=== PATIENT | female | born 1935 | race Hispanic/Latino ===

== ENCOUNTER → 2019-05-10 | Outpatient (CLI) | payer OTHER, MEDICARE | END | disposition home or self-care (01) | LOC: OIH 11:36 | PROVIDERS: ATTEND Family Medicine | DX: M17.11 Unilateral primary osteoarthritis, right knee (principal) | CPT/HCPCS: 73562 ==

== ENCOUNTER 2021-10-27 17:36 | Inpatient (IN) | payer OTHER, MEDICARE ==
[~2021-10-27] VITALS: Ht 149.9 cm; Wt 47.4 kg
[2021-10-27 18:05] LABS: BASOPHILS % (AUTO) 0.5 % (0.0-5.0); EOSINOPHILS % (AUTO) 0.9 % (0.0-8.0); HEMATOCRIT 38.3 % (36-48); LYMPHOCYTES % (AUTO) 12.6 % (21.0-51.0); MEAN CORPUSCULAR HEMOGLOBIN 31.7 pg (27.0-33.0); MEAN CORPUSCULAR HGB CONC 37.9 g/dL (32.0-36.0); MEAN CORPUSCULAR VOLUME 83.6 fL (79-99); MONOCYTES % (AUTO) 9.9 % (3.0-13.0); NEUTROPHILS % (AUTO) 72.1 % (40.0-77.0); PLATELET COUNT (AUTO) 339 K/uL (130-400); RED BLOOD CELL COUNT(AUTO) 4.58 MIL/uL (4.00-5.50); RED CELL DISTRIBUTION WIDTH 11.3 % (11.0-15.5); WHITE BLOOD COUNT (AUTO) 13.1 K/uL (4.8-10.8)
[2021-10-27 18:22] LABS: ALBUMIN 3.7 g/dL (3.5-5.0); CREATININE 1.1 mg/dL (0.5-1.5); TOTAL PROTEIN, SERUM 8.1 g/dL (6.0-8.3)
[2021-10-27 18:33] LABS: POTASSIUM 2.4 mmol/L (3.5-5.1)
[2021-10-27] MEDS ORDERED: POTASSIUM BICARB/CIT AC 25 MEQ TABLET.EFF ONE (18:57)
[2021-10-27] MEDS ORDERED: 0.9%NACL 1000ML 1,000 ML IV SCH (19:00)
[2021-10-27] MEDS ORDERED: POTASSIUM BICARB/CIT AC 25 MEQ TABLET.EFF PO ONE (19:00)
[2021-10-27] MEDS ORDERED: GUAIFENESIN-CODEINE 5 ML SYRUP PO ONE (19:00)
[2021-10-27 19:57] LABS: CRP QUANTITATIVE 5.6 mg/L (0.00-9.0); MAGNESIUM 2.2 mg/dL (1.80-2.40)
[2021-10-27] MEDS ORDERED: GUAIFENESIN-DM 200/20 MG 10 ML ONE (20:44)
[2021-10-27] MEDS ORDERED: LACTULOSE 20 GM/30 ML UDCUP PO PRN (21:30)
[2021-10-27] MEDS ORDERED: POTASSIUM CHLORIDE 20MEQ/100ML 100 ML IV PRN (21:30)
[2021-10-27] MEDS ORDERED: ONDANSETRON 4MG INJ IVP PRN (21:30)
[2021-10-27] MEDS ORDERED: TEMAZEPAM 15 MG CAPSULE PO PRN (21:30)
[2021-10-27] MEDS ORDERED: HYDRALAZINE 20MG/ML VIAL IV PRN (21:30)
[2021-10-27] MEDS ORDERED: CLONIDINE HCL 0.1 MG TABLET PO PRN (21:30)
[2021-10-27] MEDS ORDERED: DOCUSATE SODIUM 100 MG CAP PO PRN (21:30)
[2021-10-27] MEDS ORDERED: ACETAMINOPHEN 650 MG SUPPOSITORY RC PRN (21:30)
[2021-10-27] MEDS ORDERED: DEXTROSE 50%-WATER 50 ML DISP.SYRIN IV PRN (21:30)
[2021-10-27] MEDS ORDERED: LABETALOL 20MG SYG IV PRN (21:30)
[2021-10-27] MEDS ORDERED: GLUCAGON 1MG KIT 1 MG ML IM PRN (21:30)
[2021-10-27] MEDS: LACTATED RINGERS 1000ML 1,000 ML IV SCH (21:30)
[2021-10-27] MEDS ORDERED: MAGNESIUM 2GM PREMIX 50ML 50 ML IV PRN (21:30)
[2021-10-27] MEDS: SODIUM CHLORIDE 1,000 MG TAB PO SCH (22:48)
[2021-10-27] MEDS: LEVOFLOXACIN 250 MG/D5W 50ML 50 ML IVPB SCH (23:07)
[2021-10-27] MEDS ORDERED: LEVOFLOXACIN 500 MG/D5W 100 ML 100 ML ONE (23:07)
[2021-10-28] VITALS (25 sets, daily range): BP systolic 97–149; BP diastolic 44–71
[2021-10-28] LABS: POTASSIUM 3.3 mmol/L (3.5-5.1)
[2021-10-28 00:33] LABS: CREATININE 1.1 mg/dL (0.5-1.5)
[2021-10-28 00:54] LABS: APPEARANCE,URINE CLEAR (CLEAR); BILIRUBIN,URINE NEGATIVE (NEGATIVE); COLOR,URINE YELLOW (YELLOW); GLUCOSE, URINE (UA) NEGATIVE (NEGATIVE); KETONES,URINE NEGATIVE (NEGATIVE); LEUKOCYTE ESTERASE ,URINE NEGATIVE (NEGATIVE); NITRATE,URINE NEGATIVE (NEGATIVE); OCCULT BLOOD,URINE NEGATIVE (NEGATIVE); PROTEIN,URINE NEGATIVE (NEGATIVE); UROBILINOGEN,URINE 0.2 mg/dL (0.2-1.0)
[2021-10-28] MEDS ORDERED: ASCO500T20 PO (01:05)
[2021-10-28] MEDS ORDERED: VITA-164 PO (01:05)
[2021-10-28] MEDS ORDERED: CHOL200074 PO (01:05)
[2021-10-28] MEDS ORDERED: FOLI1TAB85 PO (01:05)
[2021-10-28] MEDS ORDERED: CHLO25TA3 PO (01:05)
[2021-10-28] MEDS ORDERED: METO-391 PO (01:05)
[2021-10-28] MEDS ORDERED: OMEP20CA12 PO (01:05)
[2021-10-28 04:34] LABS: BASOPHILS % (AUTO) 0.4 % (0.0-5.0); EOSINOPHILS % (AUTO) 0.4 % (0.0-8.0); HEMATOCRIT 35.5 % (36-48); LYMPHOCYTES % (AUTO) 15.4 % (21.0-51.0); MEAN CORPUSCULAR HEMOGLOBIN 31.3 pg (27.0-33.0); MEAN CORPUSCULAR HGB CONC 37.2 g/dL (32.0-36.0); MEAN CORPUSCULAR VOLUME 84.1 fL (79-99); MONOCYTES % (AUTO) 12.9 % (3.0-13.0); NEUTROPHILS % (AUTO) 67.3 % (40.0-77.0); PLATELET COUNT (AUTO) 273 K/uL (130-400); RED BLOOD CELL COUNT(AUTO) 4.22 MIL/uL (4.00-5.50); RED CELL DISTRIBUTION WIDTH 11.1 % (11.0-15.5); WHITE BLOOD COUNT (AUTO) 11.8 K/uL (4.8-10.8)
[2021-10-28 04:58] LABS: MAGNESIUM 1.9 mg/dL (1.80-2.40); PHOSPHORUS 2.7 mg/dL (2.5-4.9); POTASSIUM 3.2 mmol/L (3.5-5.1)
[2021-10-28] MEDS: INSULIN HUMULIN R 100 UNIT/ML 3ML SQ SCH ×4 (07:30→20:34)
[2021-10-28] MEDS ORDERED: NIRM1TAB PO (07:35)
[2021-10-28] MEDS ORDERED: AZITHROMYCIN 500MG+NS 250ML IV SCH (09:00)
[2021-10-28] MEDS: METOPROLOL SUCCINATE 50 MG TAB.SR.24H PO SCH (09:18)
[2021-10-28] MEDS: ASCORBIC ACID 500 MG TAB PO SCH (09:18)
[2021-10-28] MEDS: Vitamin B Complex/Vit C/Folic Acid PO SCH (09:18)
[2021-10-28] MEDS: ENOXAPARIN SODIUM 40 MG/0.4 ML SYRINGE SQ SCH (09:18)
[2021-10-28] MEDS: SODIUM CHLORIDE 1,000 MG TAB PO SCH ×3 (09:18→20:02)
[2021-10-28] MEDS: LACTATED RINGERS 1000ML 1,000 ML IV SCH ×2 (10:19→19:59)
[2021-10-28] MEDS: POTASSIUM CHLORIDE 10% ELIXIR 20 MEQ/15 ML UDCUP PO PRN ×3 (10:20→22:49)
[2021-10-28 14:35] LABS: CREATININE 0.9 mg/dL (0.5-1.5); POTASSIUM 3.7 mmol/L (3.5-5.1)
[2021-10-28 20:10] LABS: POTASSIUM 3.2 mmol/L (3.5-5.1)
[2021-10-28] MEDS ORDERED: 0.9%NACL 1000ML 1,000 ML IV SCH (20:30)
[2021-10-28] MEDS ORDERED: SODIUM CHLORIDE 1,000 MG TAB PO SCH (21:00)
[2021-10-28] MEDS: LEVOFLOXACIN 250 MG/D5W 50ML 50 ML IVPB SCH (21:31)
[2021-10-29] VITALS (16 sets, daily range): BP systolic 94–138; BP diastolic 42–75
[2021-10-29] MEDS: POTASSIUM CHLORIDE 10% ELIXIR 20 MEQ/15 ML UDCUP PO PRN (00:54)
[2021-10-29 03:53] LABS: HEMATOCRIT 33.1 % (36-48); MEAN CORPUSCULAR HEMOGLOBIN 31.9 pg (27.0-33.0); MEAN CORPUSCULAR HGB CONC 36.6 g/dL (32.0-36.0); MEAN CORPUSCULAR VOLUME 87.3 fL (79-99); PLATELET COUNT (AUTO) 283 K/uL (130-400); RED BLOOD CELL COUNT(AUTO) 3.79 MIL/uL (4.00-5.50); RED CELL DISTRIBUTION WIDTH 11.9 % (11.0-15.5); WHITE BLOOD COUNT (AUTO) 13.9 K/uL (4.8-10.8)
[2021-10-29 04:26] LABS: ALBUMIN 2.8 g/dL (3.5-5.0); CREATININE 0.9 mg/dL (0.5-1.5); MAGNESIUM 2.3 mg/dL (1.80-2.40); PHOSPHORUS 2.1 mg/dL (2.5-4.9); POTASSIUM 4.6 mmol/L (3.5-5.1); THYROID STIMULATING HORMONE 0.93 uIU/mL (0.36-3.74); TOTAL PROTEIN, SERUM 6.4 g/dL (6.0-8.3); URIC ACID 3.9 mg/dL (2.6-7.2)
[2021-10-29 04:36] LABS: BAND NEUTROPHILS % (MANUAL) 2 % (0-2); LYMPHOCYTES % (MANUAL) 8 % (22-44); MAN.DIFF COMMENT-IMPRESSION MANUAL DIFFERENTIAL; MONOCYTES % (MANUAL) 14 % (2-9); SEGMENTED NEUTROPHILS % 76 % (40-70)
[2021-10-29 04:37] LABS: PLATELET MORPHOLOGY COMMENT ADEQUATE
[2021-10-29] MEDS: ACETAMINOPHEN 325 MG TAB PO PRN ×3 (05:07→23:19)
[2021-10-29] MEDS: INSULIN HUMULIN R 100 UNIT/ML 3ML SQ SCH ×4 (07:30→19:58)
[2021-10-29] MEDS: ASCORBIC ACID 500 MG TAB PO SCH (08:25)
[2021-10-29] MEDS: ENOXAPARIN SODIUM 40 MG/0.4 ML SYRINGE SQ SCH (08:25)
[2021-10-29] MEDS: METOPROLOL SUCCINATE 50 MG TAB.SR.24H PO SCH (08:25)
[2021-10-29] MEDS: Vitamin B Complex/Vit C/Folic Acid PO SCH (08:25)
[2021-10-29 09:15] LABS: APPEARANCE,URINE Clear (CLEAR); BILIRUBIN,URINE Negative (NEGATIVE); CHLORIDE,URINE RANDOM 87 mmol/L (110-250); COLOR,URINE Yellow (YELLOW); CREATININE,URINE RANDOM 40 mg/dL (30-135); GLUCOSE, URINE (UA) Negative (NEGATIVE); KETONES,URINE Negative (NEGATIVE); LEUKOCYTE ESTERASE ,URINE Large (NEGATIVE); NITRATE,URINE Negative (NEGATIVE); OCCULT BLOOD,URINE Negative (NEGATIVE); POTASSIUM,URINE RANDOM 37 mmol/L (25-125); PROTEIN,URINE Negative (NEGATIVE); SODIUM,URINE RANDOM 78 mmol/l (40-220)
[2021-10-29] MEDS ORDERED: SODIUM CHLORIDE 1,000 MG TAB PO SCH (10:00)
[2021-10-29 10:50] LABS: BACTERIA,URINE Rare /HPF (None Seen); RBC,URINE 0-1 /HPF (0-1); SQUAMOUS EPITHELIAL CELL,UR Rare /HPF (0-2)
[2021-10-29] MEDS: SODIUM CHLORIDE 1,000 MG TAB PO SCH ×2 (14:30→20:16)
[2021-10-29] MEDS: LEVOFLOXACIN 250 MG/D5W 50ML 50 ML IVPB SCH (20:16)
[2021-10-30 03:23] VITALS: BP 140/72
[2021-10-30 04:41] LABS: HEMATOCRIT 31.9 % (36-48); MEAN CORPUSCULAR HEMOGLOBIN 31.8 pg (27.0-33.0); MEAN CORPUSCULAR HGB CONC 35.7 g/dL (32.0-36.0); MEAN CORPUSCULAR VOLUME 88.9 fL (79-99); PLATELET COUNT (AUTO) 251 K/uL (130-400); RED BLOOD CELL COUNT(AUTO) 3.59 MIL/uL (4.00-5.50); RED CELL DISTRIBUTION WIDTH 11.9 % (11.0-15.5); WHITE BLOOD COUNT (AUTO) 13.9 K/uL (4.8-10.8)
[2021-10-30 05:00] LABS: BASOPHILS % (MANUAL) 1 % (0-2); EOSINOPHILS % (MANUAL) 1 % (1-6); LYMPHOCYTES % (MANUAL) 16 % (22-44); MAN.DIFF COMMENT-IMPRESSION MANUAL DIFFERENTIAL; MONOCYTES % (MANUAL) 7 % (2-9); PLATELET MORPHOLOGY COMMENT ADEQUATE; SEGMENTED NEUTROPHILS % 75 % (40-70)
[2021-10-30 05:05] LABS: CREATININE 0.7 mg/dL (0.5-1.5); MAGNESIUM 2.1 mg/dL (1.80-2.40); PHOSPHORUS 3.5 mg/dL (2.5-4.9); POTASSIUM 3.8 mmol/L (3.5-5.1)
[2021-10-30] MEDS: KCL 20 MEQ ERTAB PO PRN ×2 (06:04→20:44)
[2021-10-30] MEDS: INSULIN HUMULIN R 100 UNIT/ML 3ML SQ SCH ×2 (06:04→11:30)
[2021-10-30 08:00] VITALS: BP 159/67
[2021-10-30] MEDS: SODIUM CHLORIDE 1,000 MG TAB PO SCH ×3 (08:56→20:42)
[2021-10-30] MEDS: Vitamin B Complex/Vit C/Folic Acid PO SCH (08:56)
[2021-10-30] MEDS: ASCORBIC ACID 500 MG TAB PO SCH (08:56)
[2021-10-30] MEDS: METOPROLOL SUCCINATE 50 MG TAB.SR.24H PO SCH (08:56)
[2021-10-30] MEDS: ENOXAPARIN SODIUM 40 MG/0.4 ML SYRINGE SQ SCH (08:58)
[2021-10-30 12:00] VITALS: BP 161/69
[2021-10-30] MEDS ORDERED: LACTULOSE 20 GM/30 ML UDCUP PO PRN (14:30)
[2021-10-30 16:00] VITALS: BP 165/75
[2021-10-30 19:55] VITALS: BP 156/69
[2021-10-30] MEDS: ACETAMINOPHEN 325 MG TAB PO PRN (20:44)
[2021-10-30] MEDS: LEVOFLOXACIN 250 MG/D5W 50ML 50 ML IVPB SCH (20:44)
[2021-10-30] MEDS ORDERED: DiphenhydrAMINE HCL 50 MG/ML VIAL ONE (22:38)
[2021-10-30] MEDS ORDERED: DiphenhydrAMINE HCL 50 MG/ML VIAL IV PRN (23:30)
[2021-10-30 23:59] VITALS: BP 161/76
[2021-10-31 04:31] VITALS: BP 144/76
[2021-10-31 05:10] LABS: HEMATOCRIT 32.8 % (36-48); MEAN CORPUSCULAR HEMOGLOBIN 31.9 pg (27.0-33.0); MEAN CORPUSCULAR HGB CONC 35.1 g/dL (32.0-36.0); MEAN CORPUSCULAR VOLUME 91.1 fL (79-99); RED BLOOD CELL COUNT(AUTO) 3.6 MIL/uL (4.00-5.50); RED CELL DISTRIBUTION WIDTH 12.2 % (11.0-15.5); WHITE BLOOD COUNT (AUTO) 13.1 K/uL (4.8-10.8)
[2021-10-31 05:28] LABS: CREATININE 0.8 mg/dL (0.5-1.5); PHOSPHORUS 3.4 mg/dL (2.5-4.9); POTASSIUM 4.2 mmol/L (3.5-5.1)
[2021-10-31 08:00] VITALS: BP 145/75
[2021-10-31] MEDS: ASCORBIC ACID 500 MG TAB PO SCH (08:16)
[2021-10-31] MEDS: SODIUM CHLORIDE 1,000 MG TAB PO SCH ×3 (08:16→21:00)
[2021-10-31] MEDS: Vitamin B Complex/Vit C/Folic Acid PO SCH (08:16)
[2021-10-31] MEDS: METOPROLOL SUCCINATE 50 MG TAB.SR.24H PO SCH (08:16)
[2021-10-31] MEDS: ENOXAPARIN SODIUM 40 MG/0.4 ML SYRINGE SQ SCH (08:17)
[2021-10-31 11:55] VITALS: BP 176/81
[2021-10-31] MEDS ORDERED: AMLODIPINE 5 MG TAB ONE (12:03)
[2021-10-31] MEDS: AMLODIPINE 5 MG TAB PO SCH (12:04)
[2021-10-31 16:00] VITALS: BP 135/57
[2021-10-31 20:00] VITALS: BP 123/58
[2021-10-31] MEDS: LEVOFLOXACIN 250 MG/D5W 50ML 50 ML IVPB SCH (21:00)
[2021-11-01] VITALS: BP 132/73
[2021-11-01 04:00] VITALS: BP 131/66
[2021-11-01 04:35] LABS: HEMATOCRIT 34.9 % (36-48); MEAN CORPUSCULAR HEMOGLOBIN 31.7 pg (27.0-33.0); MEAN CORPUSCULAR HGB CONC 34.4 g/dL (32.0-36.0); MEAN CORPUSCULAR VOLUME 92.3 fL (79-99); RED BLOOD CELL COUNT(AUTO) 3.78 MIL/uL (4.00-5.50); RED CELL DISTRIBUTION WIDTH 12.7 % (11.0-15.5); WHITE BLOOD COUNT (AUTO) 12.8 K/uL (4.8-10.8)
[2021-11-01 05:12] LABS: ALBUMIN 2.5 g/dL (3.5-5.0); CREATININE 0.8 mg/dL (0.5-1.5); MAGNESIUM 1.9 mg/dL (1.80-2.40); TOTAL PROTEIN, SERUM 6.4 g/dL (6.0-8.3)
[2021-11-01 08:00] VITALS: BP 117/66
[2021-11-01] MEDS: ENOXAPARIN SODIUM 40 MG/0.4 ML SYRINGE SQ SCH (09:36)
[2021-11-01] MEDS: ASCORBIC ACID 500 MG TAB PO SCH (09:36)
[2021-11-01] MEDS: Vitamin B Complex/Vit C/Folic Acid PO SCH (09:36)
[2021-11-01] MEDS: METOPROLOL SUCCINATE 50 MG TAB.SR.24H PO SCH (09:36)
[2021-11-01] MEDS: AMLODIPINE 5 MG TAB PO SCH (09:36)
[2021-11-01] MEDS: SODIUM CHLORIDE 1,000 MG TAB PO SCH ×2 (09:37→13:43)
[2021-11-01 12:00] VITALS: BP 131/65
[2021-11-01] MEDS ORDERED: FAMOTIDINE 20MG TAB PO SCH (21:00)
== END 2021-11-01 14:44 | DRG 640 ==
LOC: EDH 17:36 → EDHIP 20:55 → 2CH 10-28 02:53 → 2AH 10-29 15:30
PROVIDERS: ADMIT Internal Medicine; ATTEND Internal Medicine
DX: E87.1 Hypo-osmolality and hyponatremia (principal); U07.1 COVID-19; E87.6 Hypokalemia; I12.9 Hypertensive chronic kidney disease with stage 1 through stage 4 chronic kidney disease, or unspecified chronic kidney disease; N18.31 Chronic kidney disease, stage 3a; Z88.0 Allergy status to penicillin; D72.829 Elevated white blood cell count, unspecified; E05.90 Thyrotoxicosis, unspecified without thyrotoxic crisis or storm; T50.2X5A Adverse effect of carbonic-anhydrase inhibitors, benzothiadiazides and other diuretics, initial encounter
CPT/HCPCS: 36415; 71045; 80048; 80053; 81001; 81003; 82436; 82533; 82550; 82570; 82948; 83735; 83880; 83935; 84100; 84132; 84133; 84295; 84300; 84443; 84484; 84540; 84550; 85025; 85027; 86140; 87088; 87635; 87804; 93005; 94760; C9803; G0378; J0360; J1200; J1650; J1956; J2405; J3475; J3480; J7030

== ENCOUNTER 2022-03-09 18:55 | Emergency (ER) | payer OTHER, MEDICARE ==
[~2022-03-09] VITALS: Ht 154.9 cm; Wt 49.9 kg
[~2022-03-09 18:55] MED LIST: ASCO500T20 PO; CHOL200074 PO; FOLI1TAB85 PO; METO-391 PO; OMEP20CA12 PO; VITA-348 PO
[2022-03-09 20:15] LABS: BASOPHILS % (AUTO) 0.6 % (0.0-5.0); EOSINOPHILS % (AUTO) 2.3 % (0.0-8.0); HEMATOCRIT 38.4 % (36-48); LYMPHOCYTES % (AUTO) 23.6 % (21.0-51.0); MEAN CORPUSCULAR HEMOGLOBIN 30.4 pg (27.0-33.0); MEAN CORPUSCULAR HGB CONC 33.3 g/dL (32.0-36.0); MEAN CORPUSCULAR VOLUME 91.2 fL (79-99); MONOCYTES % (AUTO) 11.6 % (3.0-13.0); NEUTROPHILS % (AUTO) 61.4 % (40.0-77.0); PLATELET COUNT (AUTO) 259 K/uL (130-400); RED BLOOD CELL COUNT(AUTO) 4.21 MIL/uL (4.00-5.50); RED CELL DISTRIBUTION WIDTH 12.8 % (11.0-15.5); WHITE BLOOD COUNT (AUTO) 7.7 K/uL (4.8-10.8)
[2022-03-09 20:29] LABS: ALBUMIN 3.3 g/dL (3.5-5.0); CREATININE 0.9 mg/dL (0.5-1.5); POTASSIUM 3.4 mmol/L (3.5-5.1); TOTAL PROTEIN, SERUM 7.4 g/dL (6.0-8.3)
[2022-03-09] MEDS ORDERED: CLONIDINE HCL 0.2 MG TABLET PO ONE (22:30)
[2022-03-09] MEDS ORDERED: CLONIDINE HCL 0.1 MG TABLET PO ONE (22:30)
[2022-03-09] MEDS ORDERED: CLONIDINE HCL 0.1 MG TABLET ONE (22:34)
[2022-03-09 23:42] VITALS: BP 150/69
== END 2022-03-09 23:54 | disposition home or self-care (01) ==
LOC: EDH 18:55
DX: I10 Essential (primary) hypertension (principal); Z90.49 Acquired absence of other specified parts of digestive tract; Z88.0 Allergy status to penicillin; Z88.1 Allergy status to other antibiotic agents; Z79.899 Other long term (current) drug therapy
CPT/HCPCS: 36415; 71045; 80053; 84484; 85025; 93005

== ENCOUNTER → 2023-06-26 | Outpatient (CLI) | payer OTHER, MEDICARE ==
[~2023-06-26] MED LIST changes: +AMLO5TAB4 PO; +ATOR10TA69 PO; -FOLI1TAB85 PO; +SODI100037 PO
== END | disposition home or self-care (01) ==
LOC: RAH 13:06
PROVIDERS: ATTEND Family Medicine
DX: I08.8 Other rheumatic multiple valve diseases (principal); R79.89 Other specified abnormal findings of blood chemistry
CPT/HCPCS: 93306

== ENCOUNTER 2023-07-24 13:40 | Emergency (ER) | payer OTHER, MEDICARE ==
[~2023-07-24] VITALS: Ht 152.4 cm; Wt 49.0 kg
[2023-07-24 15:15] VITALS: BP 156/84; PULSE 76; RESP 18; O2SAT 98
== END 2023-07-24 15:20 | disposition home or self-care (01) ==
LOC: EDH 13:40
DX: Z04.1 Encounter for examination and observation following transport accident (principal); I10 Essential (primary) hypertension; Z79.899 Other long term (current) drug therapy; Z90.49 Acquired absence of other specified parts of digestive tract; Z98.890 Other specified postprocedural states; Z88.0 Allergy status to penicillin; Z88.1 Allergy status to other antibiotic agents; V49.88XA Car occupant (driver) (passenger) injured in other specified transport accidents, initial encounter; Y93.I9 Activity, other involving external motion; Y92.488 Other paved roadways as the place of occurrence of the external cause; Y99.8 Other external cause status

== ENCOUNTER 2023-10-09 21:03 | Inpatient (IN) | payer OTHER, MEDICARE ==
[~2023-10-09] VITALS: Ht 152.4 cm; Wt 62.5 kg
[2023-10-09 21:57] LABS: BASOPHILS # (AUTO) 0.06 K/uL (0.00-0.20); BASOPHILS % (AUTO) 0.6 % (0.0-5.0); EOSINOPHILS # (AUTO) 0.19 K/uL (0.00-0.70); EOSINOPHILS % (AUTO) 1.8 % (0.0-8.0); HEMATOCRIT 32.7 % (36-48); IMMATURE GRANULOCYTE ABSOLUTE 0.18 K/uL (0-1); LYMPHOCYTES # (AUTO) 2.2 K/uL (1.0-4.8); LYMPHOCYTES % (AUTO) 21.1 % (21.0-51.0); MEAN CORPUSCULAR HEMOGLOBIN 32.9 pg (27.0-33.0); MEAN CORPUSCULAR HGB CONC 35.2 g/dL (32.0-36.0); MEAN CORPUSCULAR VOLUME 93.4 fL (79-99); MONOCYTES # (AUTO) 1.1 K/uL (0.1-1.0); MONOCYTES % (AUTO) 10.9 % (3.0-13.0); NEUTROPHILS # (AUTO) 6.6 K/uL (1.8-7.7); NEUTROPHILS % (AUTO) 63.9 % (40.0-77.0); PLATELET COUNT (AUTO) 287 K/uL (130-400); RED CELL DISTRIBUTION WIDTH 12.7 % (11.0-15.5); WHITE BLOOD COUNT (AUTO) 10.4 K/uL (4.8-10.8)
[2023-10-09] MEDS ORDERED: CLONIDINE HCL 0.1 MG TABLET PO PRN (22:00)
[2023-10-09] MEDS ORDERED: ALBUTEROL 0.083% 2.5 MG/3 ML INH IH PRN (22:00)
[2023-10-09] MEDS ORDERED: POTASSIUM CHLORIDE 10MEQ/100ML 100 ML IV PRN (22:00)
[2023-10-09] MEDS ORDERED: GLUCAGON 1MG KIT 1 MG ML IM PRN (22:00)
[2023-10-09] MEDS ORDERED: ONDANSETRON 4MG INJ IVP PRN (22:00)
[2023-10-09] MEDS ORDERED: DEXTROSE 50%-WATER 50 ML DISP.SYRIN IV PRN (22:00)
[2023-10-09] MEDS ORDERED: LACTULOSE 20 GM/30 ML UDCUP PO PRN (22:00)
[2023-10-09 22:07] LABS: INR 1.06 (0.85-1.15); PROTHROMBIN TIME 11.4 SEC (9.6-11.6)
[2023-10-09 22:08] LABS: POTASSIUM 3.9 mmol/L (3.5-5.1)
[2023-10-09] MEDS: MORPHINE 4 MG SYG IVP ONE (22:08)
[2023-10-09] MEDS: ONDANSETRON 4MG INJ IVP ONE (22:08)
[2023-10-09 22:09] LABS: PARTIAL THROMBOPLASTIN TIME 24.3 SEC (26.3-35.5)
[2023-10-09] MEDS: 0.9%NACL 1000ML 1,000 ML IV SCH (22:16)
[2023-10-09] MEDS ORDERED: CHOL200052 PO (22:25)
[2023-10-09] MEDS ORDERED: OMEP20CA12 PO (22:25)
[2023-10-09] MEDS ORDERED: MULT-1367 PO (22:25)
[2023-10-09] MEDS ORDERED: ASCO500T20 PO (22:25)
[2023-10-09] MEDS ORDERED: LISI40TA9 PO (22:25)
[2023-10-09] MEDS ORDERED: METO-391 PO (22:25)
[2023-10-09] MEDS: HYDRALAZINE 20MG/ML VIAL IV PRN (22:44)
[2023-10-09 22:55] VITALS: PULSE 84; RESP 19; O2SAT 98
[2023-10-09] MEDS: 0.9% NACL 500ML IV.SOLN 500 ML IV ONE (22:57)
[2023-10-09 23:30] VITALS: BP 131/53; PULSE 95; RESP 18; O2SAT 97
[2023-10-10] VITALS (31 sets, daily range): BP systolic 92–144; BP diastolic 42–75; PULSE 72–93; RESP 14–19; O2SAT 98–100
[2023-10-10 00:05] LABS: MAGNESIUM 1.7 mg/dL (1.80-2.40); PHOSPHORUS 3.1 mg/dL (2.5-4.9)
[2023-10-10 01:16] LABS: APPEARANCE,URINE CLEAR (CLEAR); BILIRUBIN,URINE NEGATIVE (NEGATIVE); GLUCOSE, URINE (UA) NEGATIVE (NEGATIVE); KETONES,URINE NEGATIVE (NEGATIVE); LEUKOCYTE ESTERASE ,URINE NEGATIVE Leu/uL (NEGATIVE); NITRATE,URINE NEGATIVE (NEGATIVE); OCCULT BLOOD,URINE NEGATIVE (NEGATIVE); PH,URINE 6.5 (5.0-8.0); PROTEIN,URINE NEGATIVE (NEGATIVE); UROBILINOGEN,URINE 0.2 mg/dL (0.2-1.0)
[2023-10-10 01:20] LABS: ADD UA MICROSCOPIC YES; COLOR,URINE Light-Yellow (YELLOW)
[2023-10-10 01:21] LABS: BACTERIA,URINE RARE /HPF (None Seen); RBC,URINE 0-1 /HPF (0-1); WBC,URINE 0-1 /HPF (0-1)
[2023-10-10] MEDS: MAGNESIUM 2GM PREMIX 50ML 50 ML IV PRN (01:42)
[2023-10-10] MEDS: LIDOCAINE 5% TOPICAL PATCH TP STA (01:43)
[2023-10-10] MEDS: MORPHINE 2 MG SYG IVP ONE (01:43)
[2023-10-10 03:48] LABS: BASOPHILS # (AUTO) 0.04 K/uL (0.00-0.20); BASOPHILS % (AUTO) 0.2 % (0.0-5.0); EOSINOPHILS # (AUTO) 0.01 K/uL (0.00-0.70); HEMATOCRIT 31.5 % (36-48); IMMATURE GRANULOCYTE ABSOLUTE 0.15 K/uL (0-1); LYMPHOCYTES # (AUTO) 0.7 K/uL (1.0-4.8); LYMPHOCYTES % (AUTO) 3.3 % (21.0-51.0); MEAN CORPUSCULAR HEMOGLOBIN 32.2 pg (27.0-33.0); MEAN CORPUSCULAR HGB CONC 34.9 g/dL (32.0-36.0); MEAN CORPUSCULAR VOLUME 92.1 fL (79-99); MONOCYTES # (AUTO) 1.7 K/uL (0.1-1.0); MONOCYTES % (AUTO) 7.3 % (3.0-13.0); NEUTROPHILS % (AUTO) 88.5 % (40.0-77.0); PLATELET COUNT (AUTO) 232 K/uL (130-400); RED BLOOD CELL COUNT(AUTO) 3.42 MIL/uL (4.00-5.50); RED CELL DISTRIBUTION WIDTH 12.5 % (11.0-15.5); WHITE BLOOD COUNT (AUTO) 22.6 K/uL (4.8-10.8)
[2023-10-10 04:12] LABS: HEMOGLOBIN A1C 5.2 % (4.0-6.0)
[2023-10-10 04:25] LABS: % IRON SATURATION 25.4 % (22-44)
[2023-10-10 04:32] LABS: CREATININE 0.8 mg/dL (0.5-1.0); MAGNESIUM 2.7 mg/dL (1.80-2.40); POTASSIUM 3.6 mmol/L (3.5-5.1); THYROID STIMULATING HORMONE 3.62 uIU/mL (0.36-3.74)
[2023-10-10] MEDS: CEFAZOLIN SODIUM 2 GM VIAL IVPB SCH (05:36)
[2023-10-10] MEDS: INSULIN HUMULIN R 100 UNIT/ML 3ML SQ SCH (05:48)
[2023-10-10] MEDS: LEVOFLOXACIN 500 MG/D5W 100 ML 100 ML IV SCH (06:54)
[2023-10-10] MEDS: LEVOFLOXACIN 250 MG/D5W 50ML IVPB SCH (06:54)
[2023-10-10] MEDS ORDERED: AMLO-257 PO (10:24)
[2023-10-10 12:53] LABS: CREATININE 0.8 mg/dL (0.5-1.0)
[2023-10-10] MEDS ORDERED: SUCCINYLCHOLINE CHLORIDE 20 MG/ML 10 ML VIAL ONE (13:12)
[2023-10-10] MEDS ORDERED: LIDOCAINE PF 100MG/5ML (2%) SYRINGE 5ML ONE (13:12)
[2023-10-10] MEDS ORDERED: MIDAZOLAM HCL 1 MG/ML 2ML VIAL ONE (13:12)
[2023-10-10] MEDS ORDERED: PROPOFOL 10 MG/ML 20ML VIAL IV ONE (13:12)
[2023-10-10] MEDS ORDERED: ROCURONIUM BROMIDE 10MG/1ML 5ML VL ONE (13:13)
[2023-10-10] MEDS ORDERED: FENTANYL CITRATE PF 50 MCG/1 ML 2ML VIAL ONE (13:13)
[2023-10-10] MEDS ORDERED: PHENYLEPHRINE HCL 10 MG/ML 1ML VIAL IV ONE (13:21)
[2023-10-10] MEDS ORDERED: EPHEDRINE SULFATE 50 MG/ML AMPULE ONE (13:29)
[2023-10-10] MEDS ORDERED: ALBUMIN (HUMAN) 5% 250 ML IV ONE (13:35)
[2023-10-10] MEDS: CEFAZOLIN SODIUM 2 GM VIAL IVPB ONE (14:06)
[2023-10-10] MEDS ORDERED: POTASSIUM CHLORIDE 20MEQ/100ML 100 ML IV PRN (16:00)
[2023-10-10] MEDS ORDERED: KCL 20 MEQ ERTAB PO PRN (16:00)
[2023-10-10] MEDS ORDERED: CEFAZOLIN SODIUM 1 GM VIAL IVPB SCH (16:00)
[2023-10-10] MEDS: SUGAMMADEX SODIUM 200 MG/2 ML VIAL IV ONE (16:50)
[2023-10-10] MEDS: 0.9%NACL 1000ML 1,000 ML IV SCH (16:50)
[2023-10-10 17:00] LABS: MYCOPLASMA AB IGM SEE SEPARATE REPORT
[2023-10-10] MEDS: ACETAMINOPHEN 325 MG TAB PO PRN (19:56)
[2023-10-10] MEDS: CEFAZOLIN SODIUM 1 GM VIAL IVPB SCH (22:00)
[2023-10-10] MEDS: ATORVASTATIN 10 MG TABLET PO SCH (22:19)
[2023-10-10] MEDS: CEFAZOLIN SODIUM 2 GM VIAL ONE (22:19)
[2023-10-11] VITALS (11 sets, daily range): BP systolic 109–154; BP diastolic 52–64; PULSE 84–97; RESP 16–19; O2SAT 96–100
[2023-10-11 05:23] LABS: HEMATOCRIT 25.4 % (36-48); MEAN CORPUSCULAR HEMOGLOBIN 31.8 pg (27.0-33.0); MEAN CORPUSCULAR HGB CONC 33.1 g/dL (32.0-36.0); MEAN CORPUSCULAR VOLUME 96.2 fL (79-99); RED BLOOD CELL COUNT(AUTO) 2.64 MIL/uL (4.00-5.50); RED CELL DISTRIBUTION WIDTH 13.2 % (11.0-15.5); WHITE BLOOD COUNT (AUTO) 12.3 K/uL (4.8-10.8)
[2023-10-11 05:32] LABS: INR 1.18 (0.85-1.15); PROTHROMBIN TIME 12.6 SEC (9.6-11.6)
[2023-10-11 05:48] LABS: POTASSIUM 4.7 mmol/L (3.5-5.1)
[2023-10-11] MEDS: ASCORBIC ACID 500 MG TAB PO SCH (08:33)
[2023-10-11] MEDS: POLYETHYLENE GLYCOL 3350 17 GM POWD.PACK PO SCH (08:34)
[2023-10-11] MEDS: MULTIVITAMIN TABLET PO SCH (08:34)
[2023-10-11] MEDS: **HM**(Vitamin D3) (Vitamin D3) 50 MCG) PO SCH (08:35)
[2023-10-11] MEDS: PANTOPRAZOLE 40 MG TAB DR PO SCH (09:00)
[2023-10-11] MEDS: AMLODIPINE 5 MG TAB PO SCH (09:00)
[2023-10-11] MEDS: LISINOPRIL 40 MG TABLET PO SCH (09:00)
[2023-10-11] MEDS: METOPROLOL SUCCINATE 50 MG TAB.SR.24H PO SCH (09:00)
[2023-10-11] MEDS: KETOROLAC 15MG/ML VIAL (15MG/ML) IV PRN (11:18)
[2023-10-11] MEDS: CYCLOBENZAPRINE HCL 10 MG TABLET PO PRN (11:36)
[2023-10-11] MEDS: PSYLLIUM SEED 1 EACH PACKET PO SCH (12:00)
[2023-10-11] MEDS: TRAMADOL HCL 50 MG TABLET PO PRN (15:09)
[2023-10-12] VITALS (8 sets, daily range): BP systolic 106–132; BP diastolic 51–69; PULSE 82–88; RESP 17–20; O2SAT 96–100
[2023-10-12 06:27] LABS: HEMATOCRIT 21.4 % (36-48); MEAN CORPUSCULAR HEMOGLOBIN 32.4 pg (27.0-33.0); MEAN CORPUSCULAR HGB CONC 34.1 g/dL (32.0-36.0); MEAN CORPUSCULAR VOLUME 95.1 fL (79-99); RED BLOOD CELL COUNT(AUTO) 2.25 MIL/uL (4.00-5.50); WHITE BLOOD COUNT (AUTO) 14.2 K/uL (4.8-10.8)
[2023-10-12] MEDS: LEVOFLOXACIN 250 MG/D5W 50ML IVPB SCH (06:39)
[2023-10-12 06:43] LABS: INR 1.13 (0.85-1.15); PROTHROMBIN TIME 12.1 SEC (9.6-11.6)
[2023-10-12 06:44] LABS: CREATININE 0.9 mg/dL (0.5-1.0); POTASSIUM 3.8 mmol/L (3.5-5.1)
[2023-10-12] MEDS: CALCIUM CARB 500MG PO PRN (08:59)
[2023-10-12] MEDS: FERROUS FUMARATE 324 MG TABLET PO PRN (08:59)
[2023-10-12] MEDS: ENOXAPARIN SODIUM 40 MG/0.4 ML SYRINGE SQ SCH (09:04)
[2023-10-12] MEDS: POTASSIUM CHLORIDE 10% ELIXIR 20 MEQ/15 ML UDCUP PO PRN (11:30)
[2023-10-12] MEDS: SODIUM BICARB 50MEQ 50ML VIAL IV ONE (15:59)
[2023-10-12] MEDS ORDERED: BISACODYL 5 MG TABLET.DR PO PRN (16:00)
[2023-10-12 16:06] LABS: APPEARANCE,URINE CLEAR (CLEAR); BILIRUBIN,URINE NEGATIVE (NEGATIVE); COLOR,URINE YELLOW (YELLOW); GLUCOSE, URINE (UA) NEGATIVE (NEGATIVE); KETONES,URINE NEGATIVE (NEGATIVE); LEUKOCYTE ESTERASE ,URINE NEGATIVE Leu/uL (NEGATIVE); NITRATE,URINE NEGATIVE (NEGATIVE); OCCULT BLOOD,URINE NEGATIVE (NEGATIVE); PROTEIN,URINE 20 mg/dL (NEGATIVE); UROBILINOGEN,URINE 0.2 mg/dL (0.2-1.0)
[2023-10-12 16:41] LABS: BACTERIA,URINE RARE /HPF (None Seen); MUCUS,URINE RARE LPF (None Seen); SQUAMOUS EPITHELIAL CELL,UR RARE /HPF (0-2)
[2023-10-12] MEDS: SODIUM CHLORIDE 1,000 MG TAB PO SCH (20:28)
[2023-10-13] VITALS: BP 141/73; PULSE 84; RESP 20
[2023-10-13 04:00] VITALS: BP 114/48; PULSE 79; RESP 20
[2023-10-13 05:09] LABS: HEMATOCRIT 21.4 % (36-48); MEAN CORPUSCULAR HEMOGLOBIN 31.8 pg (27.0-33.0); MEAN CORPUSCULAR HGB CONC 33.2 g/dL (32.0-36.0); RED BLOOD CELL COUNT(AUTO) 2.23 MIL/uL (4.00-5.50); WHITE BLOOD COUNT (AUTO) 12.5 K/uL (4.8-10.8)
[2023-10-13 05:20] LABS: CREATININE 0.9 mg/dL (0.5-1.0); POTASSIUM 4.5 mmol/L (3.5-5.1)
[2023-10-13 05:22] LABS: INR 1.07 (0.85-1.15); PROTHROMBIN TIME 11.5 SEC (9.6-11.6)
[2023-10-13 06:45] VITALS: PULSE 78; RESP 18; O2SAT 98
[2023-10-13 08:00] VITALS: BP 136/63; PULSE 87; RESP 16; O2SAT 97
[2023-10-13 12:00] VITALS: BP 120/55; PULSE 77; RESP 16
[2023-10-13] MEDS ORDERED: BISACODYL 10 MG SUPP.RECT RC PRN (16:00)
[2023-10-15 08:16] LABS: CHLAM.PNEUMONIAE IGM TITER <1:10 (Neg:<1:10)
== END 2023-10-13 17:45 | DRG 521 ==
LOC: EDH 21:03 → OBSVTOIN 22:00 → EDHIP 22:00 → 4CH 23:36
PROVIDERS: ADMIT Internal Medicine Pulmonary Disease; ATTEND Internal Medicine Pulmonary Disease
PROC: 0SRS0JZ Replacement of Left Hip Joint, Femoral Surface with Synthetic Substitute, Open Approach (ICD-10-PCS; principal; 2023-10-10 13:09)
DX: S72.142A Displaced intertrochanteric fracture of left femur, initial encounter for closed fracture (principal); J18.9 Pneumonia, unspecified organism; R73.9 Hyperglycemia, unspecified; I10 Essential (primary) hypertension; E78.5 Hyperlipidemia, unspecified; Y93.01 Activity, walking, marching and hiking; W01.0XXA Fall on same level from slipping, tripping and stumbling without subsequent striking against object, initial encounter; Y92.89 Other specified places as the place of occurrence of the external cause; Y99.8 Other external cause status; Z90.49 Acquired absence of other specified parts of digestive tract; Z79.899 Other long term (current) drug therapy
CPT/HCPCS: 36415; 71045; 73502; 73503; 80048; 81001; 82330; 82948; 83036; 83540; 83550; 83605; 83735; 83930; 83935; 84100; 84145; 84295; 84300; 84443; 84484; 85025; 85027; 85610; 85730; 86632; 86738; 86850; 86900; 86901; 87040; 87449; 93005; 93970; 96374; 96375; 99291; A4338; C1776; G0378; J0330; J0360; J1650; J1885; J1956; J2001; J2250; J2270; J2371; J2405; J2704; J3010; J3475; J3490; J7030; J7040; P9045; A4600; A4649; A4930; A6219; G0168; J0690

== ENCOUNTER 2024-09-07 23:11 | Emergency (ER) | payer OTHER, MEDICARE ==
[~2024-09-07] VITALS: Ht 154.9 cm; Wt 46.7 kg
[~2024-09-07 23:11] MED LIST changes: +AMLO-257 PO; -AMLO5TAB4 PO; +CHOL200052 PO; -CHOL200074 PO; +LISI40TA15 PO; +MULT-1367 PO; -SODI100037 PO; -VITA-348 PO
[2024-09-07] MEDS: cloNIDine HCL 0.2 MG TABLET PO ONE (23:45)
--- NOTE | 2024-09-07 23:57 | ERN ---
General Chief Complaint: Hypertension Stated Complaint: C/O HIGH B/P Time Seen by MD: 23:17 History of Present Illness Initial Comments Patient is an 88-year-old female with hypertension who noticed that she had some neck pain today and measured her blood pressure at home and noticed it was extremely high. She comes to the emergency room where the triage nurse measured a blood pressure of systolic 220. Patient has no other symptoms. Allergies: Coded Allergies: Penicillins (Unverified Allergy, Unknown, 10/27/21) tetracycline (Unverified Allergy, Unknown, 10/27/21) Home Meds Reported Medications Amlodipine Besylate (Amlodipine Besylate) 5 Mg Tablet, 5 MG PO DAILY, TAB 10/10/23 Ascorbic Acid (Vitamin C) 500 Mg Tablet, 500 MG PO DAILY, TAB 10/09/23 Cholecalciferol (Vitamin D3) (Vitamin D3) 50 Mcg (2000 Unit) Tablet, 50 MCG PO DAILY, TAB 10/09/23 Multivitamin (Multivitamin) 1 Each Tablet, 1 EACH PO DAILY, TAB 10/09/23 Omeprazole (Omeprazole) 20 Mg Capsule.dr, 20 MG PO DAILY, CAP 10/09/23 Metoprolol Succinate (Metoprolol Succinate) 50 Mg Tab.er.24h, 50 MG PO DAILY, TAB 10/09/23 Lisinopril (Lisinopril) 40 Mg Tablet, 40 MG PO DAILY, TAB 10/09/23 Atorvastatin Calcium (Atorvastatin Calcium) 10 Mg Tablet, 1 TAB PO HS 04/30/22 Past Medical History Past Medical History: High Cholesterol, Hypertension, Other Medical History Other: KIDNEY ISSUES Past Surgical History: Other Surgical History Other: OVARIAN CYST Family History Family History: Negative Social History Social History: Negative, Lives with family ROS Dictation Review of systems is otherwise negative. Physical Exam General Appearance: (+) apparent distress Orientation: (+) alert, (+) oriented x 3 Head/Face Trauma: No Eye: bilateral eye normal inspection, bilateral eye PERRL, bilateral eye EOMI Ear, Nose, Throat: (+) hearing grossly normal, (+) normal ENT inspection Neck: (+) normal inspection, (+) supple Respiratory: (+) chest non-tender, (+) lungs clear, (+) well ventilated Heart: (+) regular, (+) no gallop Vascular: (+) no edema, (+) normal peripheral pulse, (+) no JVD Gastrointestinal: (+) soft, (+) bowel sound present MDM I gave the patient a single dose of 0.2 mg clonidine p.o. and an hour and a half later her blood pressure was down to systolic 117. Patient would like to go home. Of note I gave the patient a 500 cc of bolused to make sure her blood pressure did not bottom out ED Course Orders Procedure Category Date Status Time Clonidine Hcl 0.2 Mg PHA 09/07/24 Complete Tablet (Catapres 0. 23:30 Lactated Ringers PHA 09/07/24 Complete 1000ml (Lactated 23:56 Current Medications Medications (Trade) Dose Ordered Sig/Carlo Route PRN Reason Start Time Stop Time Status Last Admin Dose Admin Clonidine HCl (CATApres 0.2 MG TAB) 0.2 mg ONCE ONCE PO 09/07/24 23:30 09/07/24 23:31 DC 09/07/24 23:45 Lactated Ringer's (Lactated Ringers 1000ml) 500 ml BOLUS STAT IV 09/07/24 23:56 09/07/24 23:57 DC 09/08/24 00:46 Vital Signs Date Time Temp Pulse Resp B/P (MAP) Pulse Ox O2 Delivery O2 Flow Rate FiO2 09/08/24 00:46 59 16 134/41 100 Room Air* 0 21 09/08/24 00:04 62 18 181/74 100 Room Air* 0 21 09/07/24 23:45 68 204/81 09/07/24 23:34 98.4 66 16 200/85 100 Room Air* 0 21 09/07/24 23:16 98.4 79 20 223/103 99 Room Air DX & DISP Disposition: Discharge Departure Impression: Primary Impression: Hypertension Condition: Stable Additional Instructions: Please come back to the emergency room if you have a similar episode of high blood pressure. Possibly go see your physician about changing her medications if you continue to have these high blood pressure spikes. Referrals: ASHLEE LOPEZ MD (PCP) [id number] ESCOBAR MD Sep 07, 2024 23:57
[2024-09-08] MEDS: LACTATED RINGERS 1000ML IV STA (00:46)
[2024-09-08 01:42] VITALS: BP 119/50; PULSE 60; RESP 16; TEMP 98.2; O2SAT 100
== END 2024-09-08 01:44 | disposition home or self-care (01) ==
LOC: EDH 23:11
DX: I10 Essential (primary) hypertension (principal); E78.00 Pure hypercholesterolemia, unspecified; Z79.899 Other long term (current) drug therapy; Z88.0 Allergy status to penicillin; Z88.1 Allergy status to other antibiotic agents
CPT/HCPCS: 99285; 96360; J7120